=== PATIENT | female | born 1970 | race Native Hawaiian/Other Pacific Islander ===

== ENCOUNTER → 2017-08-17 | Outpatient (CLI) | payer OTHER ==
--- NOTE | 2017-08-19 09:30 | MR ---
EXAMINATION TYPE: MR arthrogram left shoulder DATE OF EXAM: 08/17/2017 COMPARISON: Correlation arthrogram injection same day HISTORY: 47-year-old female with left shoulder pain S/P fall 6 mos ago Technique: Multiplanar, multisequence images of the left were obtained after intra-articular injectio n of a gadolinium mixture. Please refer to arthrogram or port of the same day for further details. At the end of the exam, a couple sequences including the pectoralis region were added per request of ric e clinician. FINDINGS: There is some extravasation of injected contrast material along the anterior medial joint capsule wit h extra-articular contrast tracking along the superior subscapularis recess and subscapularis muscle. There is a tear of the superior labrum which extends from the anterior superior quadrant back to the mid aspect of the posterior labrum. 6 mm paralabral cyst is noted just anterior to the biceps anchor. Glenohumeral joint articular cartilage is maintained. The supraspinatus, infraspinatus, and subscapularis tendons are all intact and muscle volume is maint ained. Secondary to the contrast extravasation, there is limited visualization of the superior and middle gl enohumeral ligaments. AC joint is intact. No Hill-Sachs deformity or os acromiale. This field of view was opened to include most of the pectoralis major. There is fluid signal in the a nterior subcutaneous fat of the shoulder relating to anesthetic injection. No contrast is seen extending into the subacromial/subdeltoid bursa though there is a mild bursal eff usion. No abnormal fluid signal seen along the pectoralis major. IMPRESSION: 1. SLAP tear extending approximately 100 degrees from the anterior superior quadrant back to the mid aspect of the posterior labrum. 6 mm superior paralabral cyst. 2. Some inadvertent contrast extravasation from the shoulder joint. Secondarily, there is limited vis ualization of the superior glenohumeral and middle glenohumeral ligaments. 3. No rotator cuff tear. 4. No abnormal edema identified along the pectoralis major.
--- NOTE | 2017-08-23 20:01 | FL ---
EXAMINATION TYPE: FL arthrogram injection shoulder LT DATE OF EXAM: 08/17/2017 HISTORY: 47 year-old female left shoulder pain since fall 6 months ago. PROCEDURES: 1. Left shoulder fluoroscopy. 2. Left shoulder arthrogram. TECHNIQUE: The procedure, risks, and alternatives, were discussed with the patient, who requested that ruby sinclair. The consent form was signed, and teach-back occurred. The site/side of the procedure was marked with a line with participation by the patient. The accompan wali paperwork was verified for consistency. A directed history and physical exam was performed prior to the procedure. Medication reconciliation was performed by ancillary personnel. A critical pause was performed with assisting personnel just pr ior to the procedure, and the patient's identity was confirmed using 2 identifiers. Imaging guidance was utilized to select the precise skin entry point just prior to the procedure. The left shoulder was prepped and draped in the usual sterile fashion and local 1% lidocaine anesthes ia was instilled. Under fluoroscopic guidance, an 11-gauge spinal needle was introduced into the ant erior left glenohumeral joint. Appropriate needle tip position was confirmed after a small amount of contrast injection. Approximately 13 ml of a mixture of Omnipaque 350 iodinated contrast and gadolinium was injected into the glenohumeral joint. The needle was then removed. The patient tolerated the procedure well. A post-procedure note was placed into the medical record. There was no immediate complication. After the procedure, the patient's condition was unchanged. Estimated blood loss was minimal. IMPRESSION: Technically successful left shoulder arthrogram injection for MRI. No immediate complication.
== END | disposition home or self-care (01) ==
LOC: RADFLMAIN 13:11
PROVIDERS: ATTEND Orthopaedic Surgery
DX: M25.512 Pain in left shoulder (principal); S46.812D Strain of other muscles, fascia and tendons at shoulder and upper arm level, left arm, subsequent encounter; R20.2 Paresthesia of skin; S43.432D Superior glenoid labrum lesion of left shoulder, subsequent encounter; M65.812 Other synovitis and tenosynovitis, left shoulder; M50.20 Other cervical disc displacement, unspecified cervical region
CPT/HCPCS: 73040; 73222; Q9966

== ENCOUNTER → 2018-08-16 | Outpatient (CLI) | payer OTHER ==
--- NOTE | 2018-08-21 14:08 | MR ---
EXAMINATION TYPE: MR shoulder LT wo con DATE OF EXAM: 08/16/2018 COMPARISON: Prior MRI left shoulder August 17, 2017. HISTORY: 48-year-old female with left shoulder pain, after surgery March 2018 TECHNIQUE: Multiplanar, multisequence imaging of the left shoulder is performed without contrast. FINDINGS: There has been interval removal repair of the patient's superior labral tear with 2 pins demonstrated . Some intermediate signal at the biceps anchor could be postsurgical or tendinosis. AC joint is intact with mild degenerative changes. There is contact onto the underlying myotendinous junction of the supraspinatus. Mild subacromial/subdeltoid bursal effusion is now present. There is new heterogeneous signal throughout the supraspinatus and infraspinatus tendons. Intrasubsta nce tear of the mid supraspinatous tendon measures 7 mm AP X 6 mm long just proximal to the foot pres ent. There is new extensive bursal sided fraying of the supraspinatus tendon with shallow tearing suggeste d measuring 1.3 cm AP and 1 cm long. The subscapularis and infraspinatus tendons are intact. Glenohumeral joint is intact. Physiologic joint fluid. Fluid along the long head biceps tendon sheath also noted. No atrophy of the rotator cuff musculature. No Hill-Sachs deformity or os acromiale. Red marrow hyperplasia which can be seen with anemia, obesity, smoking, and chronic disease. IMPRESSION: 1. New diffuse rotator cuff tendinosis. There is new prominent bursal sided fraying/shallow bursal si ded tearing of the supraspinous tendon measuring 13 x 10 mm and some intrasubstance tearing just prox imal to the footprint measuring 7 x 6 mm. 2. No high-grade partial or full-thickness rotator cuff tear. No rotator cuff muscle atrophy. 3. Interval repair of the superior labral tear. 4. Mild AC joint OA. Mild subacromial/subdeltoid bursitis and mild long head biceps tenosynovitis.
== END ==
LOC: RADMRIMAIN 10:55
PROVIDERS: ATTEND Orthopaedic Surgery
DX: M75.102 Unspecified rotator cuff tear or rupture of left shoulder, not specified as traumatic (principal); M19.012 Primary osteoarthritis, left shoulder; M75.22 Bicipital tendinitis, left shoulder; M75.52 Bursitis of left shoulder; M79.89 Other specified soft tissue disorders

== ENCOUNTER → 2018-09-28 | Outpatient (CLI) | payer OTHER ==
[2018-09-28 11:48] VITALS: BP 153/103; PULSE 93; RESP 16
--- NOTE | 2018-09-28 12:44 | P.CONS ---
History of Present Illness - Reason for Consult Consult date: 09/28/18 - Chief Complaint Left shoulder pain - History of Present Illness This is a 48-year-old lady with history of left shoulder pain that started after a work-related injury when she felt about 2 years ago at work and tailored her left rotator cuff. The patient had surgery on the shoulder in March 2018 and then reinjured her shoulder at work again a few months after. The patient feels constant pain in the left shoulder that increases by moving the shoulder in all directions especially abduction. The patient also complains of lower back pain that started after her fall at work. 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 The patient had steroid injection on the left shoulder by her orthopedic surgeon twice but didn't give her any improvement in her pain. The patient used to be on Braymer for her pain and she is to take only 1 pill a day however lately she's been having problem getting prescriptions from her orthopedic surgeon. She denies any bowel or bladder dysfunction or any paresthesia in the upper or lower extremities however she feels some weakness in her left arm due to her shoulder pain. The patient denies using any illicit drugs or tobacco. Review of Systems Constitutional: Denies chills, Denies fever Eyes: denies blurred vision, denies pain Cardiovascular: Denies chest pain, Denies shortness of breath Respiratory: Denies cough Musculoskeletal: Reports as per HPI Past Medical History Past Medical History: No Reported History History of Any Multi-Drug Resistant Organisms: MRSA Year Discovered:: 04/02/16 MDRO Source:: LEFT ARM Past Surgical History: Cholecystectomy Past Anesthesia/Blood Transfusion Reactions: No Reported Reaction Past Psychological History: No Psychological Hx Reported Smoking Status: Never smoker Past Alcohol Use History: None Reported, Occasional Past Drug Use History: None Reported Medications and Allergies Allergies Allergy/AdvReac Type Severity Reaction Status Date / Time No Known Allergies Allergy Verified 09/28/18 11:34 Physical Exam Vitals: Vital Signs Pulse Resp BP Pulse Ox 09/28/18 11:35 93 16 153/103 100 Intake and Output 09/27/18 09/28/18 09/28/18 22:59 06:59 14:59 Other: Weight 62.596 kg - Constitutional General appearance: average body habitus - Respiratory Respiratory: bilateral: CTA - Cardiovascular Rhythm: regular - Neurologic Neuro exam of the upper extremities showed absent deep tendon reflexes bilaterally and symmetrically. 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 She has significant tenderness around the left shoulder anteriorly and posteriorly and also on the left trapezius muscle. She has normal range of motion of the cervical spine. Decreased range of motion of the left shoulder joint to less than 45 for shoulder abduction. Neurologic: CNII-XII intact - Musculoskeletal Musculoskeletal: gait normal - Psychiatric Psychiatric: A&O x's 3, appropriate affect, intact judgment & insight Assessment and Plan Plan: This is a 48-year-old lady with left shoulder injury at work which resulted in rotator cuff tear status post one surgery on the left shoulder and a pending another one by the end of September. The patient's pain has been constant. We will give the patient prescription for Braymer 7.5 mg once a day as needed for her pain after she recovers from her shoulder surgery and then the plan will be to wean her off this medication as soon as possible afterwards. The patient failed to respond to steroid injection previously and there is no need for another injection at this point. She also tried physical therapy with some improvement in the range of motion of the left shoulder joint. We will see the patient 4 weeks from now. I thank you for the referral.
== END ==
LOC: PNWHC3 11:25
PROVIDERS: ATTEND Anesthesiology
DX: M75.102 Unspecified rotator cuff tear or rupture of left shoulder, not specified as traumatic (principal); Z79.891 Long term (current) use of opiate analgesic
CPT/HCPCS: 99211

== ENCOUNTER → 2018-10-20 | Outpatient (CLI) | payer OTHER ==
[2018-10-20 13:33] VITALS: BP 144/87; PULSE 90; RESP 18
--- NOTE | 2018-10-20 13:57 | P.PN ---
Progress Note - Text Progress Note Date: 10/20/18 This is a 48-year-old lady with history of left shoulder rotator cuff tear and recent surgery on the left shoulder about 3 days ago. The patient is receiving Percocet 5 mg every 4 hours when necessary pain and she has been using half a pill every 4-6 hours since her surgery. She received 30 pills of Percocet 5 mg from her surgeon. The surgeon will continue to provide Percocet for 3 months if needed for her pain and then we will see her after that if her pain continues to be a problem, otherwise she does not need to be seen in our clinic.
== END ==
LOC: PNWHC3 13:14
PROVIDERS: ATTEND Anesthesiology
DX: M75.102 Unspecified rotator cuff tear or rupture of left shoulder, not specified as traumatic (principal); Z98.890 Other specified postprocedural states; Z79.891 Long term (current) use of opiate analgesic
CPT/HCPCS: 99211

== ENCOUNTER → 2019-06-19 | Outpatient (CLI) | payer OTHER ==
--- NOTE | 2019-06-20 18:04 | MR ---
EXAMINATION TYPE: MR shoulder LT wo con DATE OF EXAM: 06/19/2019 COMPARISON: 08/16/2018 HISTORY: Rot Cuff Repair, Left shoulder pain Multiplanar multiecho imaging of the left shoulder was performed without contrast. The AC joint is intact. There are small areas of increased signal in the supraspinatus tendon at the superior aspect of the humeral head. There is no retraction. The biceps tendon is intact. The subscap ularis tendon is intact. Glenohumeral joint appears normal. There is normal-appearing glenoid tavia. Scapula is intact. IMPRESSION: Small intrasubstance tear of the supraspinatus tendon. There appears to be a new full-thickness tear of the supraspinatus tendon at the attachment on the greater tuberosity of the humerus compared to la st exam. This is seen on T2 coronal image 17. There has been repair of the larger defect in the supra spinatus tendon over the superior aspect of the humeral head compared to last exam.
== END | disposition home or self-care (01) ==
LOC: RADMRIMAIN 11:37
PROVIDERS: ATTEND Orthopaedic Surgery Adult Reconstructive Orthopaedic Surgery
DX: M75.122 Complete rotator cuff tear or rupture of left shoulder, not specified as traumatic (principal)

== ENCOUNTER 2020-04-10 17:28 | Emergency (ER) | payer OTHER ==
[2020-04-10] MEDS ORDERED: ETOMIDATE 2 MG/ML 10 ML VIAL ONE (17:32)
[2020-04-10 17:37] LABS: Glucose,Whole Blood 256 mg/dL (75-99)
[2020-04-10] MEDS ORDERED: SODIUM CHLORIDE 0.9% 1,000 ML IV STA (17:46)
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
[2020-04-10] MEDS ORDERED: DIPH,PERTUS(ACELL)TETVAC-LF 0.5 ML VIAL IM ONE (17:59)
[2020-04-10 18:03] LABS: Basophils # (A) 0.1 k/uL (0-0.2); Basophils % (A) 0 %; Eosinophils # (A) 0.2 k/uL (0-0.7); Eosinophils % (A) 1 %; Lymphocytes # (A) 5.8 k/uL (1.0-4.8); Lymphocytes % (A) 24 %; MCH 30.8 pg (25.0-35.0); MCHC 31.5 g/dL (31.0-37.0); MCV 97.9 fL (80.0-100.0); Mean Platelet Volume 7.9; Monocytes # (A) 0.7 k/uL (0-1.0); Monocytes % (A) 3 %; Neutrophils # (A) 16.8 k/uL (1.3-7.7); Neutrophils % (A) 70 %; Platelet Count 292 k/uL (150-450); RBC 3.88 m/uL (3.80-5.40); RDW 12.9 % (11.5-15.5); WBC 23.9 k/uL (3.8-10.6)
[2020-04-10 18:05] LABS: ALT 56 U/L (4-34); AST 102 U/L (14-36); African American GFR (CKD) >90 (>60 ml/min/1.73 sqM); Albumin 3.8 g/dL (3.5-5.0); Alcohol <10 mg/dL; Alkaline Phosphatase 80 U/L (38-126); Anion Gap 17 mmol/L; Blood Urea Nitrogen 17 mg/dL (7-17); Calcium 8.2 mg/dL (8.4-10.2); Carbon Dioxide 18 mmol/L (22-30); Chloride 106 mmol/L (98-107); Glucose 250 mg/dL (74-99); Non-African American GFR(CKD) >90 (>60 ml/min/1.73 sqM); Potassium 3.2 mmol/L (3.5-5.1); Sodium 141 mmol/L (137-145); Total Bilirubin 0.4 mg/dL (0.2-1.3); Total Protein 6.4 g/dL (6.3-8.2)
[2020-04-10 18:14] LABS: Partial Thromboplastin Time 22.1 sec (22.0-30.0); Prothrombin Time 10.3 sec (9.0-12.0)
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
--- NOTE | 2020-04-10 18:16 | XR ---
EXAMINATION TYPE: XR chest 1V portable DATE OF EXAM: 04/10/2020 COMPARISON: NONE HISTORY: 04/21/2017. TECHNIQUE: Single frontal view of the chest is obtained. FINDINGS: There is demonstration of an endotracheal tube terminating in the right mainstem bronchus. There is also an NG tube with tip overlying the stomach. There is mild perihilar hazy opacity. No si gnificant consolidation, pleural effusion or pneumothorax. The cardiac silhouette size is within norm al limits. The osseous structures are intact. IMPRESSION: Status post support apparatus. Endotracheal tube terminating in the right mainstem bronchus. Otherwise mild atelectasis. Medical team aware finding.
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
[2020-04-10 18:21] LABS: Appearance,Urine Clear (Clear); Bacteria,Urine Rare /hpf; Bilirubin,Urine Negative (Negative); Blood,Urine Moderate (Negative); Color,Urine Yellow; Glucose,Urine (UA) 4+ (Negative); Hyaline Casts,Urine 3 /lpf (0-2); Ketones,Urine Negative (Negative); Leukocyte Esterase,Urine Negative (Negative); Mucus,Urine Occasional /hpf; Nitrite,Urine Negative (Negative); Protein,Urine 2+ (Negative); RBC,Urine 55 /hpf (0-5); Specific Gravity,Urine 1.024 (1.001-1.035); Squamous Epithelial Cell,Urine 1 /hpf (0-4); Urobilinogen,Urine <2.0 mg/dL (<2.0); WBC,Urine 4 /hpf (0-5)
[2020-04-10 18:22] LABS: Amphetamine Screen,Urine Not Detected (NotDetected); Barbiturate Screen,Urine Not Detected (NotDetected); Benzodiazepines Screen,Urine Not Detected (NotDetected); Cocaine Screen,Urine Not Detected (NotDetected); Methadone Screen, Urine Not Detected (NotDetected); Opiate Screen,Urine Not Detected (NotDetected); Oxycodone Screen, Urine Not Detected (NotDetected); Phencyclidine Screen,Urine Not Detected (NotDetected); Tricyclic Antidepressant,Urine Not Detected (NotDetected); Urn Cannabinoid Scrn Not Detected (NotDetected)
[2020-04-10 18:23] LABS: ABG Base Excess -4.9 mmol/L; ABG HCO3 20 mmol/L (21-25); ABG PCO2 32 mmHg (35-45); ABG PO2 >400 mmHg (83-108); ABG TCO2 21 mmol/L (19-24); Allen Test Performed? Yes
[2020-04-10 18:25] VITALS: BP 226/90; PULSE 120; RESP 16; TEMP 97.4
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
[2020-04-10 18:51] LABS: Poikilocytosis (M) Present; Reactive Lymphocytes Present
== END 2020-04-10 19:42 | disposition other institution (70) ==
LOC: EC 17:28
DX: S02.32XA Fracture of orbital floor, left side, initial encounter for closed fracture (principal); S22.32XA Fracture of one rib, left side, initial encounter for closed fracture; D72.829 Elevated white blood cell count, unspecified; E87.2 Acidosis; I60.9 Nontraumatic subarachnoid hemorrhage, unspecified; R40.2432 Glasgow coma scale score 3-8, at arrival to emergency department; Z79.82 Long term (current) use of aspirin; Z86.14 Personal history of Methicillin resistant Staphylococcus aureus infection; Z23 Encounter for immunization; V89.2XXA Person injured in unspecified motor-vehicle accident, traffic, initial encounter; Y92.410 Unspecified street and highway as the place of occurrence of the external cause
CPT/HCPCS: 36415; 36600; 93005; 86900; 86901; 80053; 82805; 84484; 85025; 85610; 85730; 86850; 81001; 80306; 80320; 72170; 71045; 72125; 70450; 71260; 74177; 90715; 99291; 31500; 96360; 90471; Q9967; 94002

== ENCOUNTER 2021-10-31 10:24 | Emergency (ER) | payer OTHER ==
[2021-10-31 10:36] VITALS: RESP 18; TEMP 98.9
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
[2021-10-31 13:18] VITALS: PULSE 80
--- NOTE | 2021-10-31 13:34 | XR ---
KUB. HISTORY: Confirm PEG tube placement. COMPARISON: None. TECHNIQUE: Single supine view the abdomen was obtained following contrast injected to the patient's P EG tube. FINDINGS: Contrast is seen within the stomach and duodenum. There is no evidence of extravasation. The bowel ga s pattern is unremarkable. There are surgical absence of the gallbladder. The osseous structures are intact. IMPRESSION: PEG tube appears to be in satisfactory position within the distal stomach. There is no evidence of co ntrast extravasation.
[2021-10-31 15:33] VITALS: BP 111/60
== END 2021-10-31 15:33 | disposition home or self-care (01) ==
LOC: EC 10:24
DX: K94.23 Gastrostomy malfunction (principal)
CPT/HCPCS: 43762; 74018; 99283

== ENCOUNTER 2022-01-20 16:00 | Emergency (ER) | payer OTHER ==
[2022-01-20 16:22] VITALS: PULSE 74; RESP 16; TEMP 98.2
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
[2022-01-20 17:38] VITALS: BP 120/68
== END 2022-01-20 17:38 | disposition home or self-care (01) ==
LOC: EEVIPCON 16:00 → EC 16:00
DX: Z46.59 Encounter for fitting and adjustment of other gastrointestinal appliance and device (principal); K94.23 Gastrostomy malfunction
CPT/HCPCS: 43762; 99283

== ENCOUNTER 2022-02-19 16:50 | Inpatient (IN) | payer MEDICARE, OTHER ==
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
[2022-02-19 18:08] LABS: Basophils % (A) 0 %; Eosinophils # (A) 0.1 k/uL (0-0.7); Eosinophils % (A) 1 %; HCT 42.1 % (34.0-46.0); HGB 13.5 gm/dL (11.4-16.0); Lymphocytes # (A) 1.4 k/uL (1.0-4.8); Lymphocytes % (A) 11 %; MCH 29.3 pg (25.0-35.0); MCHC 32.1 g/dL (31.0-37.0); MCV 91.3 fL (80.0-100.0); Mean Platelet Volume 9.2; Monocytes # (A) 0.6 k/uL (0-1.0); Monocytes % (A) 5 %; Neutrophils % (A) 82 %; Platelet Count 279 k/uL (150-450); RDW 15.8 % (11.5-15.5); WBC 13.4 k/uL (3.8-10.6)
[2022-02-19 18:17] LABS: INR 0.9 (<1.2); Partial Thromboplastin Time 25.6 sec (22.0-30.0); Prothrombin Time 10.4 sec (9.0-12.0)
[2022-02-19 18:24] LABS: ALT 14 U/L (4-34); African American GFR (CKD) >90 (>60 ml/min/1.73 sqM); Anion Gap 11 mmol/L; Blood Urea Nitrogen 26 mg/dL (7-17); Calcium 8.8 mg/dL (8.4-10.2); Carbon Dioxide 31 mmol/L (22-30); Chloride 97 mmol/L (98-107); Glucose 94 mg/dL (74-99); Non-African American GFR(CKD) >90 (>60 ml/min/1.73 sqM); Sodium 139 mmol/L (137-145); Total Bilirubin 0.6 mg/dL (0.2-1.3)
--- NOTE | 2022-02-19 18:30 | XR ---
EXAMINATION TYPE: XR chest 1V portable DATE OF EXAM: 02/19/2022 COMPARISON: 09/24/2021 HISTORY: Dyspnea TECHNIQUE: Single frontal view of the chest is obtained. FINDINGS: There is moderate interstitial edema with superimposed hazy opacity. No pleural effusion, or pneumothorax seen. The cardiac silhouette size is within normal limits. The osseous structures are intact. Stable tracheostomy tube. Cholecystectomy clips seen. IMPRESSION: Interstitial edema with superimposed infiltrates not excluded.
[2022-02-19 18:41] LABS: AST 31 U/L (14-36); Albumin 4.1 g/dL (3.5-5.0); Alkaline Phosphatase 115 U/L (38-126); Potassium 4.3 mmol/L (3.5-5.1); Total Protein 7.4 g/dL (6.3-8.2)
[2022-02-19] MEDS ORDERED: NALOXONE 0.4 MG/ML 1 ML VIAL IV PRN (19:22)
[2022-02-19] MEDS ORDERED: ACETAMINOPHEN TAB 325 MG TAB PO PRN (19:22)
[2022-02-19] MEDS ORDERED: AZITHROMYCIN 500 MG in SODIUM CHLORIDE 0.9% 250 ML IVPB STA (19:23)
[2022-02-19] MEDS ORDERED: PNEUMONIA PROTOCOL UTILIZED 1 EACH MISC PO PRN (19:23)
[2022-02-19] MEDS ORDERED: PIPERACILLIN-TAZOBACTAM 3.375 GM in SODIUM CHLORIDE 0.9% 100 ML IVPB STA (19:23)
[2022-02-19] MEDS: SODIUM CHLORIDE 0.9% 1,000 ML IV SCH (20:29)
[2022-02-20] MEDS: PIPERACILLIN-TAZOBACTAM 3.375 GM in SODIUM CHLORIDE 0.9% 100 ML IVPB SCH ×3 (04:54→16:20)
--- NOTE | 2022-02-20 09:18 | XR ---
EXAMINATION TYPE: XR chest 1V portable DATE OF EXAM: 02/20/2022 COMPARISON: 02/19/2022 HISTORY: Cough TECHNIQUE: Single frontal view of the chest is obtained. FINDINGS: Tracheostomy tube noted with limited inspiration. Postsurgical change or quadrant. Left lo wer lobe infiltrate. Coarsened interstitium. IMPRESSION: New left lower lobe infiltrate or atelectasis. Correlate for interstitial pneumonitis or bronchitis.
[2022-02-20 10:28] LABS: Appearance,Urine Clear (Clear); Bilirubin,Urine Negative (Negative); Blood,Urine Negative (Negative); Color,Urine Yellow; Glucose,Urine (UA) Negative (Negative); Ketones,Urine Negative (Negative); Leukocyte Esterase,Urine Negative (Negative); Nitrite,Urine Negative (Negative); Protein,Urine Negative (Negative); Specific Gravity,Urine 1.026 (1.001-1.035); Urobilinogen,Urine <2.0 mg/dL (<2.0)
[2022-02-20] MEDS: SODIUM CHLORIDE 0.9% 1,000 ML IV SCH (11:49)
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
[2022-02-21] MEDS: INSULIN DETEMIR (LEVEMIR) 100 UNIT/ML SYR SQ SCH ×3 (00:33→22:01)
[2022-02-21] MEDS: ASPIRIN 81 MG PEG/G-TUBE SCH ×2 (00:41→22:03)
[2022-02-21] MEDS: METOPROLOL TARTRATE 25 MG TAB PEG/G-TUBE SCH ×3 (00:41→22:03)
[2022-02-21] MEDS: ATORVASTATIN 40 MG TAB PEG/G-TUBE SCH ×2 (00:41→22:03)
[2022-02-21] MEDS: SODIUM CHLORIDE 0.9% 1,000 ML IV SCH ×2 (00:42→08:57)
[2022-02-21] MEDS: PIPERACILLIN-TAZOBACTAM 3.375 GM in SODIUM CHLORIDE 0.9% 100 ML IVPB SCH ×3 (00:48→15:36)
[2022-02-21] MEDS: ARTIFICIAL TEARS-HYPROMELLOSE DROPS 15 ML BTL BOTH EYES SCH ×5 (02:28→22:03)
[2022-02-21] MEDS: AZITHROMYCIN 500 MG in SODIUM CHLORIDE 0.9% 250 ML IVPB SCH ×2 (03:03→22:02)
[2022-02-21 07:13] LABS: Glucose,Whole Blood 135 mg/dL (70-110)
[2022-02-21] MEDS: SENNOSIDES 8.6 MG TAB PEG/G-TUBE SCH (08:58)
[2022-02-21] MEDS: SCOPOLAMINE 1 MG/72 HR PATCH TRANSDERM SCH (08:58)
[2022-02-21] MEDS: FUROSEMIDE 40 MG TAB PEG/G-TUBE SCH (08:58)
[2022-02-21] MEDS: FERROUS SULFATE ORAL ELIXIR 300 MG/5 ML CUP PEG/G-TUBE SCH (08:58)
[2022-02-21] MEDS: lisinopriL 5 MG TAB PEG/G-TUBE SCH (08:59)
[2022-02-21 11:44] LABS: Basophils # (A) 0.03 X 10*3/uL (0.00-0.10); Basophils % (A) 0.4 %; Eosinophils # (A) 0.21 X 10*3/uL (0.04-0.35); Eosinophils % (A) 2.9 %; HCT 36.3 % (37.2-46.3); HGB 11.3 g/dL (12.0-15.0); Immature Grans, Automated 0.4 %; Lymphocytes # (A) 1.03 X 10*3/uL (0.90-5.00); Lymphocytes % (A) 14.1 %; MCH 30.2 pg (27.0-32.0); MCHC 31.1 g/dL (32.0-37.0); MCV 97.1 fL (80.0-97.0); Mean Platelet Volume 11.8 fL (9.5-12.2); Monocytes # (A) 0.57 X 10*3/uL (0.20-1.00); Monocytes % (A) 7.8 %; NRBC Per 100 WBC 0 /100 WBCS (0.0-0.0); Neutrophils # (A) 5.44 X 10*3/uL (1.80-7.70); Neutrophils % (A) 74.4 %; Platelet Count 223 X 10*3/uL (140-440); RBC 3.74 X 10*6/uL (4.10-5.20); RDW 16.9 % (11.5-14.5); WBC 7.31 X 10*3/uL (4.50-10.00)
[2022-02-21 11:53] LABS: African American GFR (CKD) 117.1 (60.0-200.0); Anion Gap 10.1 mmol/L (10.00-18.00); BUN/Creat Ratio 24.71 Ratio (12.00-20.00); Blood Urea Nitrogen 17.3 mg/dL (9.0-27.0); Carbon Dioxide 27.9 mmol/L (20.0-27.5); Potassium 3.7 mmol/L (3.5-5.5)
[2022-02-21 11:57] LABS: Glucose,Whole Blood 134 mg/dL (70-110)
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
[2022-02-21 16:20] LABS: Glucose,Whole Blood 115 mg/dL (70-110)
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
[2022-02-22 00:34] LABS: Glucose,Whole Blood 56 mg/dL (70-110)
[2022-02-22] MEDS: SODIUM CHLORIDE 0.9% 1,000 ML IV SCH (00:34)
[2022-02-22] MEDS: PIPERACILLIN-TAZOBACTAM 3.375 GM in SODIUM CHLORIDE 0.9% 100 ML IVPB SCH ×3 (00:34→16:16)
[2022-02-22] MEDS ORDERED: DEXTROSE 50% SYRINGE 50 ML IVP STA (01:24)
[2022-02-22] MEDS: DEXTROSE 5% IN WATER 1,000 ML IV SCH ×2 (01:30→12:36)
[2022-02-22 01:54] LABS: Glucose,Whole Blood 224 mg/dL (70-110)
[2022-02-22 05:22] LABS: Glucose,Whole Blood 135 mg/dL (70-110)
[2022-02-22 07:10] LABS: Glucose,Whole Blood 148 mg/dL (70-110)
[2022-02-22] MEDS: FERROUS SULFATE ORAL ELIXIR 300 MG/5 ML CUP PEG/G-TUBE SCH (08:40)
[2022-02-22] MEDS: INSULIN DETEMIR (LEVEMIR) 100 UNIT/ML SYR SQ SCH ×2 (08:40→21:12)
[2022-02-22] MEDS: ARTIFICIAL TEARS-HYPROMELLOSE DROPS 15 ML BTL BOTH EYES SCH ×4 (08:41→21:45)
[2022-02-22] MEDS: FUROSEMIDE 40 MG TAB PEG/G-TUBE SCH (08:42)
[2022-02-22] MEDS: lisinopriL 5 MG TAB PEG/G-TUBE SCH (08:42)
[2022-02-22] MEDS: METOPROLOL TARTRATE 25 MG TAB PEG/G-TUBE SCH ×2 (08:42→21:44)
[2022-02-22] MEDS: SENNOSIDES 8.6 MG TAB PEG/G-TUBE SCH (08:42)
[2022-02-22 10:37] LABS: Basophils # (A) 0.02 X 10*3/uL (0.00-0.10); Basophils % (A) 0.2 %; Eosinophils # (A) 0.05 X 10*3/uL (0.04-0.35); Eosinophils % (A) 0.5 %; HCT 35.6 % (37.2-46.3); HGB 10.8 g/dL (12.0-15.0); Immature Grans, Automated 0.5 %; Lymphocytes # (A) 1.04 X 10*3/uL (0.90-5.00); Lymphocytes % (A) 10.9 %; MCH 29.3 pg (27.0-32.0); MCHC 30.3 g/dL (32.0-37.0); MCV 96.7 fL (80.0-97.0); Mean Platelet Volume 11.3 fL (9.5-12.2); Monocytes % (A) 5.3 %; NRBC Per 100 WBC 0 /100 WBCS (0.0-0.0); Neutrophils # (A) 7.86 X 10*3/uL (1.80-7.70); Neutrophils % (A) 82.6 %; Platelet Count 240 X 10*3/uL (140-440); RBC 3.68 X 10*6/uL (4.10-5.20); RDW 16.6 % (11.5-14.5); WBC 9.52 X 10*3/uL (4.50-10.00)
[2022-02-22 11:14] LABS: Glucose,Whole Blood 58 mg/dL (70-110)
[2022-02-22 11:16] LABS: Glucose,Whole Blood 91 mg/dL (70-110)
[2022-02-22 11:31] LABS: African American GFR (CKD) 119.7 (60.0-200.0); Anion Gap 7.9 mmol/L (10.00-18.00); BUN/Creat Ratio 18.35 Ratio (12.00-20.00); Calcium 7.7 mg/dL (8.7-10.3); Carbon Dioxide 28.2 mmol/L (20.0-27.5); Non-African American GFR(CKD) 103.3 (60.0-200.0); Potassium 3.5 mmol/L (3.5-5.5)
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
[2022-02-22 15:26] VITALS: BMI 24.1
[2022-02-22 16:12] LABS: Glucose,Whole Blood 113 mg/dL (70-110)
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
[2022-02-22] MEDS ORDERED: KETOCONAZOLE 2% SHAMPOO 1 APPLIC/ML TOPICAL SCH (18:00)
[2022-02-22] MEDS: ATORVASTATIN 40 MG TAB PEG/G-TUBE SCH (21:45)
[2022-02-22] MEDS: ASPIRIN 81 MG PEG/G-TUBE SCH (21:45)
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
[2022-02-23 00:04] LABS: Glucose,Whole Blood 182 mg/dL (70-110)
[2022-02-23] MEDS: PIPERACILLIN-TAZOBACTAM 3.375 GM in SODIUM CHLORIDE 0.9% 100 ML IVPB SCH ×3 (00:14→17:43)
[2022-02-23] MEDS: DEXTROSE 5% IN WATER 1,000 ML IV SCH (05:46)
[2022-02-23 06:14] LABS: Glucose,Whole Blood 190 mg/dL (70-110)
[2022-02-23 06:59] LABS: Glucose,Whole Blood 220 mg/dL (70-110)
[2022-02-23] MEDS: FERROUS SULFATE ORAL ELIXIR 300 MG/5 ML CUP PEG/G-TUBE SCH (08:39)
[2022-02-23] MEDS: SENNOSIDES 8.6 MG TAB PEG/G-TUBE SCH (08:39)
[2022-02-23] MEDS: INSULIN DETEMIR (LEVEMIR) 100 UNIT/ML SYR SQ SCH ×2 (08:39→20:22)
[2022-02-23] MEDS: ARTIFICIAL TEARS-HYPROMELLOSE DROPS 15 ML BTL BOTH EYES SCH ×3 (08:40→17:53)
[2022-02-23] MEDS: lisinopriL 5 MG TAB PEG/G-TUBE SCH (08:40)
[2022-02-23] MEDS: FUROSEMIDE 40 MG TAB PEG/G-TUBE SCH (08:40)
[2022-02-23] MEDS: METOPROLOL TARTRATE 25 MG TAB PEG/G-TUBE SCH ×2 (08:41→20:22)
[2022-02-23 09:14] LABS: Basophils # (A) 0.03 X 10*3/uL (0.00-0.10); Basophils % (A) 0.4 %; Eosinophils # (A) 0.21 X 10*3/uL (0.04-0.35); Eosinophils % (A) 2.8 %; HCT 38.3 % (37.2-46.3); HGB 11.8 g/dL (12.0-15.0); Immature Grans, Automated 0.4 %; Lymphocytes # (A) 1.37 X 10*3/uL (0.90-5.00); Lymphocytes % (A) 18.4 %; MCH 28.9 pg (27.0-32.0); MCHC 30.8 g/dL (32.0-37.0); MCV 93.6 fL (80.0-97.0); Mean Platelet Volume 11.7 fL (9.5-12.2); Monocytes # (A) 0.63 X 10*3/uL (0.20-1.00); Monocytes % (A) 8.5 %; NRBC Per 100 WBC 0 /100 WBCS (0.0-0.0); Neutrophils # (A) 5.17 X 10*3/uL (1.80-7.70); Neutrophils % (A) 69.5 %; Platelet Count 251 X 10*3/uL (140-440); RBC 4.09 X 10*6/uL (4.10-5.20); RDW 16.6 % (11.5-14.5); WBC 7.44 X 10*3/uL (4.50-10.00)
[2022-02-23 09:57] LABS: African American GFR (CKD) 117.2 (60.0-200.0); Anion Gap 11.1 mmol/L (10.00-18.00); BUN/Creat Ratio 11.82 Ratio (12.00-20.00); Blood Urea Nitrogen 8.3 mg/dL (9.0-27.0); C Reactive Protein 2.1 mg/dL (0.00-0.80); Calcium 8.3 mg/dL (8.7-10.3); Carbon Dioxide 26.2 mmol/L (20.0-27.5); Non-African American GFR(CKD) 101.1 (60.0-200.0); Potassium 3.3 mmol/L (3.5-5.5)
[2022-02-23] MEDS ORDERED: Potassium Replacement Protocol 1 EACH MISC MISCELLANE PRN (10:22)
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
[2022-02-23] MEDS: POTASSIUM BICARBONATE/CIT AC 20 MEQ TABLET.EFF NG-TUBE SCH (12:15)
[2022-02-23 12:47] LABS: Glucose,Whole Blood 163 mg/dL (70-110)
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
[2022-02-23 17:00] LABS: Glucose,Whole Blood 112 mg/dL (70-110)
[2022-02-23] MEDS: ATORVASTATIN 40 MG TAB PEG/G-TUBE SCH (20:22)
[2022-02-23] MEDS: ASPIRIN 81 MG PEG/G-TUBE SCH (20:22)
[2022-02-24] MEDS: ARTIFICIAL TEARS-HYPROMELLOSE DROPS 15 ML BTL BOTH EYES SCH ×3 (00:19→12:26)
[2022-02-24] MEDS: PIPERACILLIN-TAZOBACTAM 3.375 GM in SODIUM CHLORIDE 0.9% 100 ML IVPB SCH ×2 (00:33→10:10)
[2022-02-24 01:00] LABS: Glucose,Whole Blood 103 mg/dL (70-110)
[2022-02-24 02:25] VITALS: RESP 16; TEMP 98.3
[2022-02-24] MEDS: DEXTROSE 5% IN WATER 1,000 ML IV SCH (04:07)
[2022-02-24 06:55] LABS: Glucose,Whole Blood 116 mg/dL (70-110)
[2022-02-24 07:52] VITALS: BP 114/79; PULSE 64
--- NOTE | 2022-02-24 08:40 | P.PN ---
Subjective Progress Note Date: 02/23/22 Principal diagnosis: Pneumonia and positive blood cultures Patient is a 51-year-old female with multiple comorbidities including closed head injury chronic trach and PEG has been brought to the hospital with increasing shortness of breath and concern for possible pneumonia did have a positive blood culture with staph epi. On today's evaluation that is 02/23/2022, the patient is afebrile, the patient is breathing comfortably on a trach collar did have some purulent sputum for the trach, no vomiting no diarrhea or any other changes reported by the nurses. Patient unable to provide a reliable history Objective - Vital Signs Vital signs: Vital Signs Temp 98.7 F 02/23/22 20:00 Pulse 66 02/23/22 20:00 Resp 17 02/23/22 20:00 BP 97/67 02/23/22 20:00 Pulse Ox 97 02/23/22 20:00 FiO2 28 02/23/22 20:22 Intake & Output 02/23/22 02/23/22 02/24/22 06:59 18:59 06:59 Intake Total 30 50 Output Total 1100 Balance 30 -1100 50 Weight 66.9 kg Intake: Tube Feeding 30 50 Output: Urine 1100 Other: Voiding Method Diaper Incontinent External Catheter Incontinent External Catheter # Voids 0 1 # Bowel Movements 1 - Exam GENERAL DESCRIPTION: Middle-aged female lying in bed in no distress RESPIRATORY SYSTEM: Unlabored breathing , decreased breath sounds at bases HEART: S1 S2 regular rate and rhythm , ABDOMEN: Soft , no tenderness EXTREMITIES: No edema feet - Labs CBC & Chem 7: 02/23/22 04:31 02/23/22 18:54 Labs: Abnormal Lab Results - Last 24 Hours (Table) 02/23/22 02/23/22 02/23/22 Range/Units 00:02 04:31 04:31 RBC 4.09 L (4.10-5.20) X 10*6/uL Hgb 11.8 L (12.0-15.0) g/dL MCHC 30.8 L (32.0-37.0) g/dL RDW 16.6 H (11.5-14.5) % Potassium 3.3 L (3.5-5.5) mmol/L BUN 8.3 L (9.0-27.0) mg/dL BUN/Creatinine Ratio 11.82 L (12.00-20.00) Ratio Glucose 167 H (70-110) mg/dL POC Glucose (mg/dL) 182 H (70-110) mg/dL Calcium 8.3 L (8.7-10.3) mg/dL C-Reactive Protein 2.10 H (0.00-0.80) mg/dL 02/23/22 02/23/22 02/23/22 Range/Units 06:13 06:57 12:46 RBC (4.10-5.20) X 10*6/uL Hgb (12.0-15.0) g/dL MCHC (32.0-37.0) g/dL RDW (11.5-14.5) % Potassium (3.5-5.5) mmol/L BUN (9.0-27.0) mg/dL BUN/Creatinine Ratio (12.00-20.00) Ratio Glucose (70-110) mg/dL POC Glucose (mg/dL) 190 H 220 H 163 H (70-110) mg/dL Calcium (8.7-10.3) mg/dL C-Reactive Protein (0.00-0.80) mg/dL 02/23/22 Range/Units 16:59 RBC (4.10-5.20) X 10*6/uL Hgb (12.0-15.0) g/dL MCHC (32.0-37.0) g/dL RDW (11.5-14.5) % Potassium (3.5-5.5) mmol/L BUN (9.0-27.0) mg/dL BUN/Creatinine Ratio (12.00-20.00) Ratio Glucose (70-110) mg/dL POC Glucose (mg/dL) 112 H (70-110) mg/dL Calcium (8.7-10.3) mg/dL C-Reactive Protein (0.00-0.80) mg/dL Microbiology - Last 24 Hours (Table) 02/20/22 15:39 Blood Culture Gram Stain - Final Blood Blood Culture - Final Staph hominis sub sp. hominis 02/20/22 15:40 Blood Culture Gram Stain - Final Blood Blood Culture - Final Staph hominis sub sp. hominis Coagulase Negative Staph Assessment and Plan (1) Bacteremia Current Visit: Yes Status: Acute Code(s): R78.81 - BACTEREMIA SNOMED Code(s): 9546622 (2) Pneumonia Current Visit: Yes Status: Acute Code(s): J18.9 - PNEUMONIA, UNSPECIFIED ORGANISM SNOMED Code(s): 723072532 Plan: 1patient with a positive blood culture with coagulase-negative staph more likely skin contaminant as the patient has no clinical disease to go along with that, no need for vancomycin blood cultures will be repeated document clearance of bacteremia. 2patient with increasing shortness of breath cough with evidence of increasing infiltrate concerning for possible pneumonia. 3patient to continue with Zosyn, no need for vancomycin Time with Patient: Less than 30
[2022-02-24] MEDS: FUROSEMIDE 40 MG TAB PEG/G-TUBE SCH (10:08)
[2022-02-24] MEDS: INSULIN DETEMIR (LEVEMIR) 100 UNIT/ML SYR SQ SCH (10:09)
[2022-02-24] MEDS: lisinopriL 5 MG TAB PEG/G-TUBE SCH (10:09)
[2022-02-24] MEDS: SENNOSIDES 8.6 MG TAB PEG/G-TUBE SCH (10:09)
[2022-02-24] MEDS: METOPROLOL TARTRATE 25 MG TAB PEG/G-TUBE SCH (10:09)
[2022-02-24] MEDS: FERROUS SULFATE ORAL ELIXIR 300 MG/5 ML CUP PEG/G-TUBE SCH (10:11)
[2022-02-24 11:17] LABS: Glucose,Whole Blood 153 mg/dL (70-110)
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
[2022-02-24] MEDS: SCOPOLAMINE 1 MG/72 HR PATCH TRANSDERM SCH (12:27)
[2022-02-24 19:07] LABS: Glucose,Whole Blood 84 mg/dL (70-110)
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
== END 2022-02-24 18:01 | DRG 202 ==
LOC: EC 16:50 → 4SSUR 19:22
PROVIDERS: ADMIT Hospitalist; ATTEND Hospitalist
DX: J20.9 Acute bronchitis, unspecified (principal); G93.1 Anoxic brain damage, not elsewhere classified; J96.11 Chronic respiratory failure with hypoxia; I69.359 Hemiplegia and hemiparesis following cerebral infarction affecting unspecified side; Z43.1 Encounter for attention to gastrostomy; I11.0 Hypertensive heart disease with heart failure; I50.9 Heart failure, unspecified; Z93.0 Tracheostomy status; E11.9 Type 2 diabetes mellitus without complications; Z79.4 Long term (current) use of insulin; Z20.822 Contact with and (suspected) exposure to COVID-19; E78.5 Hyperlipidemia, unspecified; I69.391 Dysphagia following cerebral infarction; R13.10 Dysphagia, unspecified; R32 Unspecified urinary incontinence; M62.49 Contracture of muscle, multiple sites; Z87.820 Personal history of traumatic brain injury; Z79.82 Long term (current) use of aspirin; Z79.899 Other long term (current) drug therapy; Z86.69 Personal history of other diseases of the nervous system and sense organs; Z87.01 Personal history of pneumonia (recurrent); Z86.14 Personal history of Methicillin resistant Staphylococcus aureus infection
CPT/HCPCS: 36415; 71045; 80048; 80053; 81003; 83605; 83880; 84132; 84145; 85025; 85610; 85730; 86140; 87040; 87070; 87077; 87186; 87205; 87502; 87635; 93005; 96361; 96365; 96367; 99285

== ENCOUNTER 2022-04-16 16:06 | Emergency (ER) | payer MEDICARE, OTHER ==
[2022-04-16 16:22] VITALS: TEMP 98.3
[2022-04-16] MEDS ORDERED: SODIUM CHLORIDE 0.9% 1,000 ML IV STA (16:37)
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
--- NOTE | 2022-04-16 17:43 | XR ---
EXAMINATION TYPE: XR KUB DATE OF EXAM: 04/16/2022 5:36 PM CLINICAL HISTORY: PEG tube placement TECHNIQUE: Single semi-upright KUB image of the abdomen is obtained. 30 mL Isovue-300 injected into t he PEG tube prior to the radiograph. COMPARISON: None. FINDINGS: There is contrast opacification of the body and antrum of the stomach. There is no extragas tric extravasation contrast seen on the single view. Scattered gas is seen in non-distended small bowel loops. Gas and fecal material is seen in non-diste nded colon The lung bases are clear and the osseous structures are intact. IMPRESSION: PEG tube placement AP semiupright radiograph.
[2022-04-16 18:40] VITALS: BP 112/78; PULSE 78; RESP 20
== END 2022-04-16 19:51 | disposition home or self-care (01) ==
LOC: EC 16:06
DX: K94.23 Gastrostomy malfunction (principal)
CPT/HCPCS: 74018; 99283; Q9967

== ENCOUNTER 2022-06-27 19:29 | Emergency (ER) | payer MEDICARE, OTHER ==
[2022-06-27 19:47] VITALS: RESP 16; TEMP 98.1
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
[2022-06-27 22:39] VITALS: BP 125/86; PULSE 63
== END 2022-06-27 22:39 | disposition home or self-care (01) ==
LOC: EC 19:29
DX: K94.23 Gastrostomy malfunction (principal); Z79.82 Long term (current) use of aspirin
CPT/HCPCS: 43762; 99284

== ENCOUNTER 2022-09-18 21:16 | Emergency (ER) | payer MEDICARE, OTHER ==
[2022-09-18 21:30] VITALS: BP 110/80; PULSE 80; RESP 18; TEMP 99
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
--- NOTE | 2022-09-18 23:41 | XR ---
EXAMINATION TYPE: XR KUB DATE OF EXAM: 09/18/2022 COMPARISON: 04/16/2022 HISTORY: Tube placement TECHNIQUE: Single view FINDINGS: Contrast was injected 40 mL of Isovue into the gastrostomy tube. There is contrast opacific ation of the stomach and the proximal duodenum. No extravasation. IMPRESSION: Gastrostomy tube is in good position in the body of the stomach. No evidence of a leak.
== END 2022-09-19 00:35 | disposition home or self-care (01) ==
LOC: SUPCPDRO 21:16 → EC 21:16
DX: K94.23 Gastrostomy malfunction (principal)
CPT/HCPCS: 43762; 74018; 99284

== ENCOUNTER 2022-11-24 12:53 | Emergency (ER) | payer MEDICARE, OTHER ==
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
[2022-11-24 14:11] VITALS: BP 110/81; PULSE 92; RESP 17; TEMP 98.5
== END 2022-11-24 15:05 | disposition home or self-care (01) ==
LOC: EC 12:53
DX: Z43.1 Encounter for attention to gastrostomy (principal); Z79.82 Long term (current) use of aspirin
CPT/HCPCS: 43762; 99283

== ENCOUNTER 2023-04-26 13:42 | Emergency (ER) | payer MEDICARE, OTHER ==
[2023-04-26 14:06] VITALS: TEMP 98.7
--- NOTE | 2023-04-26 14:37 | XR ---
EXAMINATION TYPE: XR chest 1V portable DATE OF EXAM: 04/26/2023 COMPARISON: 02/20/2022 HISTORY: Cough TECHNIQUE: Single frontal view of the chest is obtained. FINDINGS: Limited inspiration. Tracheostomy tube stable interstitial pattern. Surgical clips are sosa drant. No pleural effusion or pneumothorax. Biapical pleural thickening. Diffuse osteopenia with shou lder arthropathy on the left. IMPRESSION: Correlate for interstitial pneumonitis.
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
[2023-04-26 16:03] VITALS: RESP 20
[2023-04-26 17:52] VITALS: BP 135/87; PULSE 86
== END 2023-04-26 17:30 | disposition home or self-care (01) ==
LOC: EC 13:42
DX: U07.1 COVID-19 (principal); Z86.73 Personal history of transient ischemic attack (TIA), and cerebral infarction without residual deficits
CPT/HCPCS: 71045; 99285

== ENCOUNTER 2024-08-31 08:14 | Emergency (ER) | payer MEDICARE, OTHER ==
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
--- NOTE | 2024-08-31 09:18 | XR ---
EXAMINATION TYPE: XR KUB DATE OF EXAM: 08/31/2024 9:13 AM CLINICAL INDICATION: Female, 54 years old with history of PEG tube evaluation, pain TECHNIQUE: 1 view of the abdomen is obtained after injection of 30 mL of Isovue-300 through PEG tube . COMPARISON: Prior abdominal x-ray September 18, 2022. FINDINGS: Contrast is seen opacifying the stomach extending into the duodenum similar to prior. No co ntrast extravasation identified. Cholecystectomy clips are redemonstrated. Entire right abdomen is no t included. IMPRESSION: Successful replacement of PEG tube. [facility], , 08/31/2024 9:16 AM
[2024-08-31 09:53] VITALS: BP 112/67; PULSE 85; RESP 17; TEMP 98.4
== END 2024-08-31 10:25 | disposition home or self-care (01) ==
LOC: EC 08:14
DX: K94.23 Gastrostomy malfunction (principal)
CPT/HCPCS: 99284; 74018; 43762; Q9967

== ENCOUNTER 2024-09-12 14:35 | Observation (INO) | payer MEDICARE, OTHER ==
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
[2024-09-12] MEDS: PIPERACILLIN-TAZOBACTAM 3.375 GM in SODIUM CHLORIDE 0.9% 100 ML IVPB STA (16:46)
[2024-09-12] MEDS: SODIUM CHLORIDE 0.9% 1,000 ML IV SCH (16:47)
[2024-09-12 16:55] LABS: Basophils % (A) 1 %; Eosinophils # (A) 0.2 k/uL (0-0.7); Eosinophils % (A) 2 %; Hypochromasia Slight; Lymphocytes # (A) 1.4 k/uL (1.0-4.8); Lymphocytes % (A) 19 %; MCH 31.5 pg (25.0-35.0); MCHC 32.5 g/dL (31.0-37.0); MCV 96.8 fL (80.0-100.0); Mean Platelet Volume 9.4; Monocytes # (A) 0.4 k/uL (0-1.0); Monocytes % (A) 5 %; Neutrophils # (A) 5.5 k/uL (1.3-7.7); Neutrophils % (A) 72 %; Platelet Count 239 k/uL (150-450); RBC 4.75 m/uL (3.80-5.40); RDW 14.6 % (11.5-15.5); WBC 7.7 k/uL (3.8-10.6)
[2024-09-12] MEDS: CIPROFLOXACIN 0.3% OPHTH SOLN 5 ML BTL LEFT EYE STA (16:56)
[2024-09-12 17:09] LABS: ALT 28 U/L (4-34); African American GFR (CKD) >90 (>60 ml/min/1.73 sqM); Anion Gap 12 mmol/L; Blood Urea Nitrogen 17 mg/dL (7-17); C Reactive Protein 1.4 mg/dL (<1.0); Calcium 9.6 mg/dL (8.4-10.2); Carbon Dioxide 30 mmol/L (22-30); Chloride 96 mmol/L (98-107); Glucose 159 mg/dL (74-99); Non-African American GFR(CKD) >90 (>60 ml/min/1.73 sqM); Sodium 138 mmol/L (137-145); Total Bilirubin 0.8 mg/dL (0.2-1.3)
[2024-09-12 17:13] LABS: Magnesium 1.8 mg/dL (1.6-2.3); Phosphorus 4.5 mg/dL (2.5-4.5); Potassium 4.6 mmol/L (3.5-5.1)
[2024-09-12 17:14] LABS: AST 51 U/L (14-36); Albumin 4.5 g/dL (3.5-5.0); Alkaline Phosphatase 111 U/L (38-126)
[2024-09-12 17:17] LABS: INR 0.9 (<1.2); Partial Thromboplastin Time 24.2 sec (22.0-30.0); Prothrombin Time 10.4 sec (10.0-12.5)
[2024-09-12] MEDS ORDERED: MORPHINE SULFATE 4 MG/ML SYRINGE IV PRN (17:34)
[2024-09-12] MEDS ORDERED: ONDANSETRON 4 MG/2 ML VIAL IVP PRN (17:34)
[2024-09-12] MEDS ORDERED: NALOXONE 0.4 MG/ML 1 ML VIAL IV PRN (17:34)
--- NOTE | 2024-09-12 18:00 | CT ---
EXAMINATION TYPE: CT orbits w con CT DLP: 312 mGycm, Automated exposure control for dose reduction was used. DATE OF EXAM: 09/12/2024 5:53 PM COMPARISON: CT brain C-spine 04/10/2020. CLINICAL INDICATION:Female, 54 years old with history of L eye edema; PHH, Left eye edema. TECHNIQUE: Multiple thin slice images were obtained through the orbits. Coronal and sagittal reforma ts were performed. Approximately 100 mL of Isovue [address] administered intravenously. One or more CT dose reduction strategies were utilized during this examination. Total DLP 312 mGycm. FINDINGS: The globes have a normal contour. No acute fracture of the orbital jara. Previous left inferior blow out fracture. The orbital fat is unremarkable. Extraocular muscles are within normal limits. Vascular sclerosis is noted to the internal carotid arteries. The osseous structures are unremarkabl e. Diffuse moderate hydrocephalus. Mild mucosal thickening in the posterior left ethmoid sinus. The r emaining visualized paranasal sinuses are clear. The mastoid air cells are clear. IMPRESSION: 1. No evidence of orbital irregularity or mass. 2. Previous left inferior blowout fracture. No acute fracture. 3. Moderate hydrocephalus. Further workup is recommended. [facility], , 09/12/2024 5:58 PM
[2024-09-12] MEDS: LEVOFLOXACIN 750MG-D5W PMX 750 MG in DEXTROSE/WATER 1 150ML.BAG IVPB STA (18:52)
[2024-09-12] MEDS ORDERED: ARTIFICIAL TEARS-HYPROMELLOSE DROPS 15 ML BTL BOTH EYES PRN (21:20)
[2024-09-12] MEDS: PROPARACAINE 0.5% OPHTH DROPS 15 ML BTL BOTH EYES STA (21:45)
[2024-09-12] MEDS: TROPICAMIDE 1% OPHTH DROPS 2 ML BTL BOTH EYES ONE (21:45)
[2024-09-12] MEDS: PHENYLEPHRINE 2.5% OPHTH DRP 2ML BOTH EYES SCH (21:45)
[2024-09-13 08:28] LABS: ALT 22 U/L (8-44); AST 23 U/L (13-35); Albumin 3.9 g/dL (3.8-4.9); Alkaline Phosphatase 108 U/L (41-126); Blood Urea Nitrogen 12.6 mg/dL (9.0-27.0); Calcium 8.8 mg/dL (8.7-10.3); Carbon Dioxide 25.7 mmol/L (21.6-31.8); Chloride 104 mmol/L (96-109); Globulin 2.6 g/dL (1.6-3.3); Glucose 206 mg/dL (70-110); Magnesium 1.8 mg/dL (1.5-2.4); Phosphorus 3.3 mg/dL (2.4-5.1); Sodium 142 mmol/L (135-145); Total Bilirubin 0.3 mg/dL (0.3-1.2); Total Protein 6.5 g/dL (6.2-8.2)
[2024-09-13] MEDS ORDERED: IPRATROPIUM-ALBUTEROL 3 ML NEB INHALATION PRN (08:43)
[2024-09-13] MEDS ORDERED: DEXTROSE 50% SYRINGE 50 ML IVP PRN ×2 (08:48)
[2024-09-13 09:14] LABS: Basophils # (A) 0.03 X 10*3/uL (0.00-0.10); Basophils % (A) 0.3 %; Eosinophils # (A) 0.02 X 10*3/uL (0.04-0.35); Eosinophils % (A) 0.2 %; HCT 41.6 % (37.2-46.3); Lymphocytes # (A) 0.99 X 10*3/uL (0.90-5.00); Lymphocytes % (A) 10.8 %; MCH 31.6 pg (27.0-32.0); MCHC 31.3 g/dL (32.0-37.0); MCV 101.2 FL (80.0-97.0); Mean Platelet Volume 12.1 FL (9.5-12.2); Monocytes # (A) 0.62 X 10*3/uL (0.20-1.00); Monocytes % (A) 6.8 %; NRBC Per 100 WBC 0 X 10*3/uL (0.00-0.01); Neutrophils # (A) 7.48 X 10*3/uL (1.80-7.70); Neutrophils % (A) 81.6 %; Platelet Count 252 X 10*3/uL (140-440); RBC 4.11 X 10*6/uL (4.10-5.20); RDW 15.2 % (11.5-14.5); WBC 9.17 X 10*3/uL (4.50-10.00)
[2024-09-13] MEDS: ENOXAPARIN 40 MG/0.4 ML SYRINGE SQ SCH (10:06)
[2024-09-13] MEDS: MULTIVITAMINS, THERA LIQUID 237 ML BOTTLE PEG/G-TUBE SCH (10:06)
[2024-09-13] MEDS: FERROUS SULFATE ORAL ELIXIR 300 MG/5 ML CUP PEG/G-TUBE SCH (10:08)
[2024-09-13] MEDS: POTASSIUM BICARBONATE/CIT AC 20 MEQ TABLET.EFF PEG/G-TUBE SCH (10:08)
[2024-09-13] MEDS: FUROSEMIDE 40 MG TAB PEG/G-TUBE SCH (10:09)
[2024-09-13] MEDS: METOPROLOL TARTRATE 25 MG TAB PEG/G-TUBE SCH (10:09)
[2024-09-13] MEDS: INSULIN LISPRO (HumaLOG) 100 UNIT/ML 10 mL VL SQ SCH ×2 (11:18→12:31)
--- NOTE | 2024-09-13 11:34 | XR ---
EXAMINATION TYPE: XR chest 1V DATE OF EXAM: 09/13/2024 11:30 AM COMPARISON: Chest radiographs from 04/26/2023 TECHNIQUE: XR chest 1V Frontal view of the chest. CLINICAL INDICATION:Female, 54 years old with history of hx. of trach collar assess for pneumonia; FINDINGS: Lungs/Pleura: There is no evidence of pleural effusion or pneumothorax. Coarse interstitial prominenc e. Chronic elevation of the right hemidiaphragm. Heart/mediastinum: Cardiomediastinal silhouette is enlarged and stable. Musculoskeletal: No acute osseous pathology. Bilateral shoulder arthropathy. Other: Stable tracheostomy tube. Cholecystectomy clips in the right upper quadrant. IMPRESSION: Chronic elevation of the right hemidiaphragm with coarse interstitial prominence. Correlate for inter stitial pneumonitis. [facility], , 09/13/2024 11:32 AM
[2024-09-13] MEDS: DEXAMETHASONE SOD PHOSPHATE MISCELLANE ONE (11:48)
[2024-09-13] MEDS: [UNRECOGNIZED DRUG - OTHER] MISCELLANE ONE (11:48)
[2024-09-13] MEDS: VANCOMYCIN MISCELLANE ONE (11:48)
[2024-09-13] MEDS: CEFTAZIDIME MISCELLANE ONE (11:48)
[2024-09-13 12:40] LABS: Glucose,Whole Blood 296 mg/dL (70-110)
[2024-09-13] MEDS: SIMETHICONE 80 MG CHEWABLE PEG/G-TUBE SCH (13:33)
[2024-09-13] MEDS: ACETAMINOPHEN ORAL SUSP (PEDS) 3,840 MG/120 ML BOTTLE PEG/G-TUBE SCH (13:33)
[2024-09-13 16:26] LABS: Glucose,Whole Blood 310 mg/dL (70-110)
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
[2024-09-13] MEDS: ASPIRIN 81 MG PEG/G-TUBE SCH (20:35)
[2024-09-13] MEDS: ATORVASTATIN 40 MG TAB PEG/G-TUBE SCH (20:35)
[2024-09-13 20:40] LABS: Glucose,Whole Blood 202 mg/dL (70-110)
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
[2024-09-13] MEDS: INSULIN GLARGINE (LANTUS) 100 UNIT/ML SYR SQ SCH (22:42)
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
[2024-09-14 06:01] LABS: Glucose,Whole Blood 268 mg/dL (70-110)
[2024-09-14 08:36] LABS: ALT 20 U/L (8-44); AST 27 U/L (13-35); Albumin 3.6 g/dL (3.8-4.9); Albumin/Globulin Ratio 1.64 Ratio (1.60-3.17); Alkaline Phosphatase 92 U/L (41-126); BUN/Creat Ratio 18.83 Ratio (12.00-20.00); Blood Urea Nitrogen 11.3 mg/dL (9.0-27.0); Calcium 8.2 mg/dL (8.7-10.3); Carbon Dioxide 24.7 mmol/L (21.6-31.8); Chloride 105 mmol/L (96-109); Globulin 2.2 g/dL (1.6-3.3); Glucose 262 mg/dL (70-110); Magnesium 1.7 mg/dL (1.5-2.4); Potassium 3.9 mmol/L (3.5-5.5); Sodium 140 mmol/L (135-145); Total Bilirubin 0.2 mg/dL (0.3-1.2); Total Protein 5.8 g/dL (6.2-8.2)
[2024-09-14 08:41] LABS: Basophils # (A) 0.02 X 10*3/uL (0.00-0.10); Basophils % (A) 0.3 %; Eosinophils # (A) 0.12 X 10*3/uL (0.04-0.35); Eosinophils % (A) 2.1 %; HCT 37.8 % (37.2-46.3); HGB 11.6 g/dL (12.0-15.0); Lymphocytes # (A) 2.03 X 10*3/uL (0.90-5.00); Lymphocytes % (A) 34.9 %; MCH 31.3 pg (27.0-32.0); MCHC 30.7 g/dL (32.0-37.0); MCV 101.9 FL (80.0-97.0); Mean Platelet Volume 12.2 FL (9.5-12.2); Monocytes % (A) 10.3 %; NRBC Per 100 WBC 0 X 10*3/uL (0.00-0.01); Neutrophils # (A) 3.03 X 10*3/uL (1.80-7.70); Neutrophils % (A) 52.1 %; Platelet Count 193 X 10*3/uL (140-440); RBC 3.71 X 10*6/uL (4.10-5.20); RDW 15.6 % (11.5-14.5); WBC 5.82 X 10*3/uL (4.50-10.00)
--- NOTE | 2024-09-14 09:12 | P.CON ---
Consult Note - . Consult date: 09/14/24 Assessment/Plan:: day 1 corneal ulcer of the left eye follow up. Patient has begun on topical fortified cefazolin and vancomycin drop every 4 hours. There are apparently no complaints of drop application. Still awaiting for any indication of possible etiology of the ulcer. Va: light perception and normal reaction IOP: not assessed Conjunctiva: OD white and quiet, OS mild injection, no gross purulence Cornea: OD unremarkable; OS with epithelial intact and without staining. inferior ulcer without purulence is approximately 4 mm wide x 5 mm vertically, centered on inferior limbus. Appears dense without thinning AC: OD D&Q; OS is deep without gross inflammation, no indication of synechiae development A: OS nosocomial corneal ulcer, stable at the moment, presumptively being treated for bacterail, most likely, cannot rule out, at this time possible fungal viral or other cause. P: Recommend continue application of current topical fortified medication of cefazolin and vancomycin every 4 hours. Awaiting microbiology reuslts which may assist in treatment. Best examination will be a slit lamp which does not seem feasible. Recommend close observation until definite determination of improvement is able to be made.
[2024-09-14 11:31] LABS: Glucose,Whole Blood 235 mg/dL (70-110)
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
[2024-09-14 16:28] LABS: Glucose,Whole Blood 174 mg/dL (70-110)
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
[2024-09-14 20:16] LABS: Glucose,Whole Blood 153 mg/dL (70-110)
[2024-09-15 02:31] LABS: Glucose,Whole Blood 169 mg/dL (70-110)
[2024-09-15 06:14] LABS: Glucose,Whole Blood 203 mg/dL (70-110)
--- NOTE | 2024-09-15 10:17 | P.CON ---
Consult Note - . Consult date: 09/15/24 Assessment/Plan:: Follow up on corneal ulcer left eye. Has been on cefazolin and vanco for 48. There seems to be no particular difficulties with the drop application of perceived side effects. Patient seems to tolerate well. Va: light perception and follows Ext: spontaneously opening both eye. minimal eyelid swelling left eye Conjunctiva: white quiet OD, mild injection, minimal discharge is noted Cornea: intact OU, no staining noted, no breakdown or Aida, heav inferior scarring opacity unchanged, size ~ 4 x 5 mm chava, inferior AC: D&Q OU A: corneal ulcer OS improving with current topical medication cefacoline and vancomycin. Awaiting culture however will not likely change therapy, at this time. P: recommend continue topical drops of cefazoline and vancomycin for the next week. Drops treatment most likely is able to be applied in usp. OK to discharge from ophthalmology. Recommend follow up in office within 1 week to follow up on progress and continued therapy as cornea heals.
[2024-09-15 10:31] LABS: Basophils # (A) 0.02 X 10*3/uL (0.00-0.10); Basophils % (A) 0.3 %; Eosinophils # (A) 0.19 X 10*3/uL (0.04-0.35); Eosinophils % (A) 2.5 %; HCT 39.7 % (37.2-46.3); HGB 12.1 g/dL (12.0-15.0); Lymphocytes # (A) 2.09 X 10*3/uL (0.90-5.00); MCH 31.3 pg (27.0-32.0); MCHC 30.5 g/dL (32.0-37.0); MCV 102.6 FL (80.0-97.0); Mean Platelet Volume 11.8 FL (9.5-12.2); Monocytes # (A) 0.63 X 10*3/uL (0.20-1.00); Monocytes % (A) 8.4 %; NRBC Per 100 WBC 0 X 10*3/uL (0.00-0.01); Neutrophils # (A) 4.52 X 10*3/uL (1.80-7.70); Neutrophils % (A) 60.5 %; Platelet Count 203 X 10*3/uL (140-440); RBC 3.87 X 10*6/uL (4.10-5.20); WBC 7.47 X 10*3/uL (4.50-10.00)
[2024-09-15 10:42] LABS: Blood Urea Nitrogen 10.7 mg/dL (9.0-27.0); Calcium 8.6 mg/dL (8.7-10.3); Carbon Dioxide 24.6 mmol/L (21.6-31.8); Chloride 107 mmol/L (96-109); Glucose 215 mg/dL (70-110); Potassium 3.6 mmol/L (3.5-5.5); Sodium 143 mmol/L (135-145)
[2024-09-15 11:19] LABS: Glucose,Whole Blood 204 mg/dL (70-110)
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
[2024-09-15 13:45] VITALS: BP 113/73; PULSE 78; RESP 17; TEMP 99.1
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
[2024-09-15 15:40] VITALS: BMI 29.8
[2024-09-15 16:38] LABS: Glucose,Whole Blood 190 mg/dL (70-110)
== END 2024-09-15 17:06 ==
LOC: EC 14:35 → EEVIPCON 17:36 → 6NMEDSUR 17:36 → 4SSUR 22:44
PROVIDERS: ADMIT Hospitalist; ATTEND Hospitalist
DX: H05.012 Cellulitis of left orbit (principal); H16.012 Central corneal ulcer, left eye; E87.20 Acidosis, unspecified; E11.9 Type 2 diabetes mellitus without complications; I10 Essential (primary) hypertension; R79.82 Elevated C-reactive protein (CRP); E78.5 Hyperlipidemia, unspecified; J44.89 Other specified chronic obstructive pulmonary disease; J96.10 Chronic respiratory failure, unspecified whether with hypoxia or hypercapnia; I69.359 Hemiplegia and hemiparesis following cerebral infarction affecting unspecified side; Z87.820 Personal history of traumatic brain injury; Z93.0 Tracheostomy status; Z79.4 Long term (current) use of insulin; Z79.82 Long term (current) use of aspirin; Z79.899 Other long term (current) drug therapy
CPT/HCPCS: 96372 ×3; 96365; 96366; 96367; 99285; 36415; 94760 ×3; 80053 ×3; 80048; 83605; 83735 ×3; 84100 ×2; 84484; 85025 ×4; 85610; 85730; 86140; 87040; 87070; 87205; 83036; 71045; 70481; G0378 ×5; J2543; J3370 ×3; J0690 ×3; J1650 ×3; J1956; Q9967

== ENCOUNTER 2024-09-27 09:52 | Day surgery (SDC) | payer MEDICARE, OTHER ==
[~2024-09-27 09:52] MED LIST: MOXIFLOXACIN HCL 0.5% DROPS 3 ML BTL OP PRN; TETRACAINE 0.5% OPHTH (PF) DROPS 4 ML BTL OP PRN
[2024-09-27] MEDS: IPRATROPIUM 0.5 MG/2.5 ML NEBU INHALATION ONE (10:35)
[2024-09-27] MEDS: LIDOCAINE 4% (PF) 5 ML AMP IH ONE (10:35)
[2024-09-27] MEDS: LACTATED RINGERS 1,000 ML IV ONE (10:45)
[2024-09-27] MEDS ORDERED: GLYCOPYRROLATE 0.2 MG/ML 2 ML VIAL IVP STA (10:52)
[2024-09-27] MEDS: GLYCOPYRROLATE 0.2 MG/ML 2 ML VIAL IVP ONE (10:54)
[2024-09-27] MEDS: CYCLOPENTOLATE 1% OPHTH SOLN 2 ML BTL OP PRN (11:00)
[2024-09-27 11:09] VITALS: RESP 18; TEMP 97.1
[2024-09-27] MEDS: guaiFENesin SYRUP 100MG/5ML 200 MG/10 ML CUP PO PRN (11:34)
[2024-09-27 11:44] LABS: Glucose,Whole Blood 218 mg/dL (70-110)
[2024-09-27] MEDS: PHENYLEPHRINE 2.5% OPHTH DRP 2ML OP PRN (11:53)
[2024-09-27] MEDS: BALANCED SALT IRRIG SOLN COMB2 15 ML IRRIG.SOLN INTRAOCULA ONE (12:59)
[2024-09-27] MEDS: TETRACAINE 0.5% OPHTH (PF) DROPS 4 ML BTL RIGHT EYE ONE (13:00)
[2024-09-27] MEDS: FLUORESCEIN STRIPS 1 MG STRIP LEFT EYE ONE (13:09)
[2024-09-27] MEDS: IV FLUID CONTINUATION 800 ML IV ONE (13:17)
--- NOTE | 2024-09-27 13:19 | P.OP ---
Date of Procedure: 09/27/24 Preoperative Diagnosis: corneal ulcer OS Postoperative Diagnosis: same Procedure(s) Performed: EUA Implants: none Anesthesia: local Surgeon: Dev Aviles Pathology: none sent Condition: stable Disposition: same day Indications for Procedure: follow up on corneal ulcer & exam for DM Operative Findings: no complications
[2024-09-27 13:40] VITALS: BP 103/56; PULSE 94
--- NOTE | 2024-09-28 00:14 | OP ---
OPERATIVE REPORT DATE OF SERVICE : PROCEDURE PERFORMED: Examination under anesthesia. PREOPERATIVE DIAGNOSES: Corneal ulcer of the left eye and diabetes mellitus, E11.9. ANESTHESIA: Topical. ESTIMATED BLOOD LOSS: None. SPECIMENS TAKEN: None. NARRATIVE: After obtaining the appropriate consent, the patient was brought into the phase 1 recovery area, where the examination had taken place, the patient remained supine, received a couple of drops of tetracaine to each eye and Schiotz tonometry of the eye was unable to be accomplished as the patient was unable to lay totally supine; however, tactile pressures of the eyes were soft on both counts. External examination of the eyes revealed slight enough thalamus appreciated on the left eye and palpation of the orbital rim of the right was completely unremarkable where palpation of the orbital rim, especially on the inferior ramus appreciated a step-off in the lower lateral quadrant. Otherwise, eye lids and lashes were unremarkable. Conjunctiva was white and quiet. Cornea was clear on the right side. Left cornea demonstrated grade 3 opacity with interstitial keratitis rising from the 6 o'clock position well into the line of sight. The area of opacification was approximately 4 x 6 mm in diameter, centering on the inferior limbus. The cornea was stained with fluorescein, and there was no evidence of any epithelial defect. Anterior chamber of both eyes was deep and quiet. Irides were brown. The lenses were clear. Examination of the posterior aspect of the eyes showed a clear vitreous of each of the 2 eyes with limited peripheral views of the left eye, which appeared largely intact for approximately 180 degrees. Examination of the posterior pole of the right eye demonstrated an optic nerve, which was sharp, flattened, pink with a cup-to-disc ratio of 0.4, normal nerve fiber layer tissue. There was a dim foveolar light reflex. The macula was quiet. There was no evidence of clinically significant macular edema or any indication of any proliferative or nonproliferative diabetic retinopathy. Vasculature was 0.66 and the periphery was intact for 360 degrees. Once the examination of the patient was complete, discharge orders were written including discontinuation of the topical antibiotic for the left eye as the ulcer had resolved. Continuation of aggressive lubrication of each of the 2 eyes with artificial tear ointment and follow up as needed with discussion from the extended care facility. She tolerated the procedure well and was discharged from recovery back to [facility]. MMODL / IJN: [id number] /
== END 2024-09-27 14:04 ==
LOC: OR 09:52
PROVIDERS: ATTEND Ophthalmology
DX: H16.002 Unspecified corneal ulcer, left eye (principal); I10 Essential (primary) hypertension; E11.9 Type 2 diabetes mellitus without complications; N28.9 Disorder of kidney and ureter, unspecified; Z86.69 Personal history of other diseases of the nervous system and sense organs; Z89.232 Acquired absence of left shoulder; Z90.49 Acquired absence of other specified parts of digestive tract; Z79.4 Long term (current) use of insulin; Z79.899 Other long term (current) drug therapy
CPT/HCPCS: 92018; J2003; J1596

== ENCOUNTER → 2024-11-23 | Outpatient (CLI) | payer MEDICARE, OTHER | END | disposition home or self-care (01) | LOC: LABWHC1 12:50 | PROVIDERS: ATTEND Ophthalmology | DX: G82.50 Quadriplegia, unspecified (principal); E11.9 Type 2 diabetes mellitus without complications; H16.002 Unspecified corneal ulcer, left eye; Z53.9 Procedure and treatment not carried out, unspecified reason | CPT/HCPCS: 87070; 87205 ==